=== PATIENT | female | born 1995 | race Caucasian/White ===

== ENCOUNTER 2023-03-10 01:20 | Emergency (ER) | payer MEDICAID ==
[~2023-03-10] VITALS: Ht 167.6 cm; Wt 68.0 kg
[2023-03-10 01:23] VITALS: O2SAT 100
[2023-03-10] MEDS ORDERED: SODIUM CHLORIDE 0.9% 1,000 ML IV ONE (02:00)
[2023-03-10 02:21] LABS: HEMATOCRIT. 43.3 % (36.0-48.0); HEMOGLOBIN. 14.7 g/dL (12.0-16.0); MEAN CORPUSCULAR HEMOGLOBIN 31.6 pg (28.0-32.0); MEAN CORPUSCULAR HGB CONC 33.9 g/dL (31.0-37.0); MEAN CORPUSCULAR VOLUME 93.4 fL (81.0-99.0); MEAN PLATELET VOLUME 8.3 fl (7.4-10.4); PLATELET 309 x1000/uL (130-400); RED BLOOD CELL COUNT 4.64 mill/uL (4.2-5.4); RED CELL DISTRIBUTION WIDTH 14.5 % (11.6-14.6); WHITE BLOOD COUNT 17.8 x1000/uL (4.5-11.0)
[2023-03-10 02:22] LABS: DIFFERENTIAL COMMENT 1
[2023-03-10 02:30] LABS: CHLORIDE 110 mEq/L (98-107); INDEX HEMOLYSI 1 (1-3); INDEX ICTERIC 1 (1-4); INDEX LIPEMIC 1 (1-3); POTASSIUM 3.6 mEq/L (3.5-5.1); SODIUM 140 mEq/L (136-145)
[2023-03-10 02:32] LABS: CALCIUM 8.9 mg/dL (8.5-10.1)
[2023-03-10 02:34] LABS: HCG SCREEN NEGATIVE
[2023-03-10 02:40] LABS: ALANINE AMINOTRANSFERASE 46 IU/L (13-61); ALBUMIN 3.8 g/dL (3.4-5.0); ASPARTATE AMINOTRANSFERASE 22 IU/L (15-37); BILIRUBIN TOTAL 0.6 mg/dL (0.1-1.0); CARBON DIOXIDE 22 mEq/L (21-32); CREATININE 0.7 mg/dL (0.6-1.3); GLUCOSE 180 mg/dL (70-105); PROTEIN TOTAL 8.4 g/dL (6.0-8.3); TROPONIN I HIGH SENSITIVITY 15 ng/L (<54); UREA NITROGEN BLOOD 16 mg/dL (7-21)
[2023-03-10 05:35] LABS: PLATELET ESTIMATE NORMAL
[2023-03-10 08:42] VITALS: BP 106/74; PULSE 98; RESP 18; TEMP 98.2
== END 2023-03-10 08:43 | disposition short-term general hospital (02) ==
LOC: ER 01:20
DX: R00.0 Tachycardia, unspecified (principal)
CPT/HCPCS: 80053; 84703; 85025; 84484; 36415; 71045; 93005; 96360; 99285; J7030; Z7610 ×2